=== PATIENT | female | born 1980 | race Caucasian/White ===

== ENCOUNTER 2020-08-02 18:10 | Emergency (ER) | payer OTHER ==
[~2020-08-02] VITALS: Ht 170.2 cm; Wt 63.5 kg
[2020-08-02] MEDS ORDERED: XANAX 0.5 MG0.5 M1 PO (18:32)
[2020-08-02] MEDS ORDERED: WELLBUTRIN 75 M75 M1 PO (18:32)
[2020-08-02] MEDS ORDERED: CYMBALTA20 MG PO (18:32)
[2020-08-02] MEDS ORDERED: PROPRANOLOL 1010 MG PO (18:33)
[2020-08-02] MEDS ORDERED: ADDERALL 10 MG10 MG PO (18:41)
[2020-08-02 18:59] LABS: URINE BILIRUBIN NEGATIVE (Negative); URINE BLOOD NEGATIVE (Negative); URINE CLARITY CLEAR; URINE COLOR YELLOW; URINE GLUCOSE-RANDOM NEGATIVE (Negative); URINE KETONES NEGATIVE (Negative); URINE LEUKOCYTES-REFLEX NEGATIVE (Negative); URINE NITRITE-REFLEX NEGATIVE (Negative); URINE PROTEIN NEGATIVE (Negative); URINE SPECIFIC GRAVITY >= 1.030 (1.005-1.030); URINE UROBILINOGEN 0.2 E.U./dl (0.2-1.0)
[2020-08-02 19:10] LABS: AMP/METHAMP POSITIVE (Negative); BARBITURATES Negative (Negative); BENZODIAZEPINES POSITIVE (Negative); COCAINE Negative (Negative); METHADONE Negative (Negative); OPIATES POSITIVE (Negative); PCP Negative (Negative); THC POSITIVE (Negative)
[2020-08-02 19:15] LABS: ABSOLUTE BASOPHILS 0.1 thou/uL (0.0-0.2); ABSOLUTE EOSINOPHILS 0.1 thou/uL (0.0-0.7); ABSOLUTE LYMPHOCYTES 1.9 thou/uL (0.8-5.3); ABSOLUTE MONOCYTES 0.4 thou/uL (0.0-1.2); BASOPHILS 0.8 %; EOSINOPHILS 0.9 %; HEMATOCRIT 34.2 % (37.0-47.0); HEMOGLOBIN 11.5 gm/dL (12.0-15.0); LYMPHOCYTES 30.1 %; MCH 29.4 pg (26.0-34.0); MCHC 33.5 g/dL (28.0-37.0); MCV 87.9 fL (80.0-100.0); MONOCYTES 5.7 %; NUCLEATED RBCS 0 /100WBC; PLATELET COUNT* 324 thou/uL (150-400); POLYS 62.5 %; RDW-CV 13.4 % (10.5-14.5); WBC 6.4 thou/uL (4.0-11.0)
[2020-08-02 19:23] LABS: CALCIUM 8.7 mg/dL (8.5-10.1); CREATININE 0.7 mg/dL (0.6-1.3); POTASSIUM 3.5 mmol/L (3.5-5.1)
[2020-08-02 19:31] LABS: TOTAL BILIRUBIN 0.3 mg/dL (<0.1-1.0); TOTAL PROTEIN 7.2 g/dL (6.4-8.2)
[2020-08-02 19:46] LABS: ACETAMINOPHEN < 2 ug/mL (10-30); ALCOHOL < 10 mg/dL (<10); SALICYLATE < 2.8 mg/dL (2.8-20.0)
[2020-08-02 22:00] VITALS: BP 122/68
== END 2020-08-02 22:00 | disposition still patient (30) ==
LOC: M.ERS 18:10
PROVIDERS: Emergency Medicine Emergency Medical Services
DX: F41.9 Anxiety disorder, unspecified (principal); F32.9 Major depressive disorder, single episode, unspecified; Z79.899 Other long term (current) drug therapy

== ENCOUNTER → 2020-10-07 | Outpatient (CLI) | payer OTHER ==
[~2020-10-07] MED LIST: ADDERALL 10 MG10 MG PO; CYMBALTA20 MG PO; PROPRANOLOL 1010 MG PO; WELLBUTRIN 75 M75 M1 PO; XANAX 0.5 MG0.5 M1 PO
== END ==
LOC: M.RAD 09:18
PROVIDERS: ATTEND Registered Nurse Diabetes Educator
DX: M47.812 Spondylosis without myelopathy or radiculopathy, cervical region (principal)

== ENCOUNTER → 2020-10-20 | Outpatient (CLI) | payer OTHER | LOC: M.MRI 07:18 | PROVIDERS: ATTEND Registered Nurse Diabetes Educator | DX: M50.323 Other cervical disc degeneration at C6-C7 level (principal); R93.89 Abnormal findings on diagnostic imaging of other specified body structures; M47.812 Spondylosis without myelopathy or radiculopathy, cervical region; M48.02 Spinal stenosis, cervical region; M25.78 Osteophyte, vertebrae ==